=== PATIENT | male | born 1955 | race Caucasian/White ===

== ENCOUNTER 2023-08-14 09:00 | Observation (INO) ==
[2023-08-14] MEDS: Lactated Ringers 1000 ml BAG 1,000 ML IV ONE ×3 (10:20→14:00)
[2023-08-14] MEDS: Ondansetron 4 mg VIAL 2 MG/ML 2 ml VIAL IV ONE (10:20)
[2023-08-14 11:04] LABS: ABS Lymphocytes 0.2 10^3/uL (1.0-4.8); ABS Monocytes 0.8 10^3/uL (0.0-1.1); ABS Neutrophils 3.9 10^3/uL (1.5-7.6); ABS Nucleated RBC 0.01 10^3/ul; Eosinophil % 0.1 %; Hematocrit 53.5 % (38-53); Hemoglobin 18.2 g/dL (13.2-16.3); Lymphocyte % 4.3 %; Mean Corpuscular Hemoglobin 32.9 pg (27-33); Mean Corpuscular Hgb Conc 34.1 g/dL (31-36); Mean Corpuscular Volume 96.5 fL (80-97); Mean Platelet Volume 7.8 fL (7.5-11.2); Nucleated Red Blood Cells % 0.3 %/100WBC (0.0-0.8); Platelet Count 329 10^3/uL (150-450); Red Blood Count 5.55 10^6/uL (4.06-5.63); Red Cell Distribution Width 15.3 % (12-17)
[2023-08-14 11:43] LABS: ALT 52 U/L (7-52); Albumin 4.7 g/dL (3.2-5.2); Albumin/Globulin Ratio 1.3 (1-3); Alkaline Phosphatase 69 U/L (35-149); Anion Gap 15 mmol/L (2-16); Blood Urea Nitrogen 38 mg/dL (6-24); C Reactive Protein 208.21 mg/L (<8.01); CO2 Carbon Dioxide 19 mmol/L (22-32); Chloride 96 mmol/L (101-111); Globulin 3.5 g/dL (2-4); Glucose 135 mg/dL (70-100); Sodium 130 mmol/L (135-145); Total Bilirubin 0.6 mg/dL (0.2-1.0); Total Protein 8.2 g/dL (6.4-8.9); eGFR CKD-EPI 43.9 (>60)
[2023-08-14] MEDS: Iodixanol (CONTRAST) 320 MG/ML 100 ML SDV IV ONE (12:46)
[2023-08-14 14:36] LABS: Magnesium 2.1 mg/dL (1.9-2.7); Potassium Redraw 3.9 mmol/L (3.5-5.0)
[2023-08-14] MEDS ORDERED: Saline NASAL SPRAY 0.65% BTL BOTH NARES PRN (14:45)
[2023-08-14] MEDS: Pantoprazole VIAL 40 MG VIAL IV ONE (15:54)
[2023-08-14] MEDS: cefTRIAXone 1 gm/50 mL D5W 1 GM/50 ML BAG IV SCH (15:54)
[2023-08-14] MEDS: Lactated Ringers 1000 ml BAG 1,000 ML IV SCH (15:54)
[2023-08-14] MEDS: Ondansetron 4 mg VIAL 2 MG/ML 2 ml VIAL IV PRN (16:15)
[2023-08-14 16:19] LABS: Hematocrit 47.4 % (38-53); Hemoglobin 15.9 g/dL (13.2-16.3)
[2023-08-14] MEDS: metroNIDAZOLE IV 500 MG/100ML 500 MG/100 ML BAG IVPB SCH ×2 (18:16→19:30)
[2023-08-14] MEDS: Pantoprazole VIAL 40 MG VIAL IV SCH (20:53)
[2023-08-14 21:36] LABS: Urine Appearance Clear; Urine Bilirubin Negative (Negative); Urine Blood 2+ (Negative); Urine Color Yellow; Urine Glucose Negative (Negative); Urine Ketones 1+ (Negative); Urine Nitrite Negative (Negative); Urine Protein 1+ (>=30 mg/dL) (Negative); Urine Specific Gravity 1.039 (1.002-1.030); Urine Urobilinogen Negative (Negative); Urine pH 6.5 (5.0-8.0)
[2023-08-14 21:43] LABS: Urine Bacteria Absent /HPF (Absent); Urine Red Blood Cell 3+(>10/hpf) /HPF (0-Trace); Urine White Blood Cell Trace(0-5/hpf) /HPF (0-Trace)
[2023-08-15 06:16] LABS: Hematocrit 44.4 % (38-53); Hemoglobin 15.1 g/dL (13.2-16.3); Mean Corpuscular Hemoglobin 32.6 pg (27-33); Mean Platelet Volume 7.8 fL (7.5-11.2); Platelet Count 315 10^3/uL (150-450); Red Blood Count 4.63 10^6/uL (4.06-5.63); Red Cell Distribution Width 14.9 % (12-17); White Blood Count 6.2 10^3/uL (3.6-10.2)
[2023-08-15 06:32] LABS: Calcium 8.7 mg/dL (8.6-10.3); Creatinine, Serum 0.93 mg/dL (0.67-1.17); Potassium 3.5 mmol/L (3.5-5.0); eGFR CKD-EPI 90.6 (>60)
[2023-08-15 07:03] LABS: ABS Lymphocytes 0.5 10^3/uL (1.0-4.8); ABS Monocytes 1.1 10^3/uL (0.0-1.1); ABS Neutrophils 4.5 10^3/uL (1.5-7.6); Eosinophil % 0.7 %; Lymphocyte % 8.9 %; Nucleated Red Blood Cells % 0.1 %/100WBC (0.0-0.8); RBC Morphology Normal (Normal)
[2023-08-15] MEDS ORDERED: Pantoprazole VIAL 40 MG VIAL IV SCH (09:00)
[2023-08-15] MEDS: cefTRIAXone 1 gm/50 mL D5W 1 GM/50 ML BAG IV SCH (13:49)
[2023-08-16 05:27] VITALS: BP 113/70
[2023-08-16 06:26] LABS: Hematocrit 37.9 % (38-53); Mean Corpuscular Hemoglobin 32.4 pg (27-33); Mean Corpuscular Hgb Conc 34.2 g/dL (31-36); Mean Corpuscular Volume 94.7 fL (80-97); Mean Platelet Volume 7.3 fL (7.5-11.2); Platelet Count 277 10^3/uL (150-450); Red Blood Count 4.01 10^6/uL (4.06-5.63); Red Cell Distribution Width 15.1 % (12-17); White Blood Count 5.7 10^3/uL (3.6-10.2)
[2023-08-16 06:56] LABS: C Reactive Protein 89.56 mg/L (<8.01); Calcium 8.4 mg/dL (8.6-10.3); Creatinine, Serum 0.62 mg/dL (0.67-1.17); Potassium 3.2 mmol/L (3.5-5.0); eGFR CKD-EPI 105.4 (>60)
== END 2023-08-16 10:55 | disposition home or self-care (01) ==
LOC: EDHOLD 09:00 → ED 09:00 → SSU 17:30
PROVIDERS: ADMIT Hospitalist; ATTEND Hospitalist